=== PATIENT | male | born 1995 | race Caucasian/White ===

== ENCOUNTER 2025-05-12 22:17 | Emergency (ER) | payer MEDICAID, SELFPAY ==
[2025-05-12 22:18] VITALS: BP 137/88; PULSE 97; RESP 16; TEMP 36.9; O2SAT 97; BMI 27.0
[2025-05-12 22:27] VITALS: BMI 27.0
--- NOTE | 2025-05-12 22:31 | EKG_ITS ---
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
--- NOTE | 2025-05-12 22:31 | XR_ITS ---
Examination: CT abdomen and pelvis without contrast. Coronal 3-D reconstructions. Sagittal 2-D reconstructions. Date and time of exam:May 13, 2025, 0013 hours INDICATIONS: Medical clearance, history foreign body, swallowed foreign body, CTDI: vol (mGy): 7.40 DLP: (mGycm): 438 Technique: Axial images of the abdomen have been obtained, 3 mm slice thickness Intravenous contrast material has not been administered. Low dose protocols were performed. One or more of the following dose reduction techniques were used; automated exposure control, adjustment of the mA and/or KV according to patient size, use of iterative reconstruction technique. Findings: No focal liver or splenic lesion No gallstones No pancreatic or adrenal mass No renal or ureteral calculi, no hydronephrosis Normal appendix No bowel obstruction Bladder intact No opaque foreign body seen Osseous structures intact IMPRESSION: No foreign body seen
[2025-05-12 22:32] VITALS: BP 144/84; PULSE 96; RESP 18; TEMP 36.9; O2SAT 100
--- NOTE | 2025-05-12 22:32 | EDNOTE_ITS ---
ED General RME/HPI General Chief complaint: Skin/Abscess/Foreign Body Stated complaint: Ingestion of Unknown Object Time Seen by Provider: 05/12/25 22:30 Arrival date/time: 05/12/25 22:17 RME / HPI RME / HPI narrative: 29-year-old male with no relevant past medical history comes into the ED brought in by PD due to ingestion of foreign body. Patient states that around 3 days ago he ingested a large amount of heroin in an attempt to hide it from the PD and he also inserted around 1 was of other drugs in a plastic wrapping compressed into a wall into his rectum. Patient states that since then he has been constipated and has not been able to pass this foreign body even though he has tried and when he strains he has abdominal pain. He also mentioned that he tried to induce vomiting for the portion of the illicit drugs that he ingested, but was unsuccessful. At this time patient has no other complaints and denies having any nausea, vomiting, abdominal pain, shortness of breath, chest pain, or fevers. Otherwise no other complaints. Related Data Allergies Allergy/AdvReac Type Severity Reaction Status Date / Time No Known Allergies Allergy Verified 07/06/24 21:50 Review of Systems Review of Systems Systems Reviewed: All systems reviewed, normal except as documented Past Medical History Past Medical History Comments PMH COMMENT: PMH: None Allergies: NKDA Social Hx: Past smoker, drugs, alcohol ED Exam Narrative Physical exam: Gen: A&O X 3, NAD HEENT: NCAT, EOMI, Pupils reactive СЕРГЕЙ, not icteric. External ears normal. No rhinorrhea. Moist mucous membranes. Neck: Supple, full range of motion, no observable masses, No meningeal sign. Lungs: No Respiratory distress, clear bilateral. CV: RRR, no murmurs. Abdomen: Soft, nondistended, nontender, No rebound tenderness. MSK: No joint swelling, no redness, peripheral pulses presents, lumbar with no edema. Skin: No rashes, petechiae, lesions.. Neuro: No focal neurological deficits appreciated, sensory and motor intact. Psych: Cooperative, appropriate mood and effect. Course Quality Measures none Orders Category Date Time Status Home Service Consultant Q4H START 00 Care 05/12/25 22:31 Active Continuous Pulse Oximetry NOW Care 05/12/25 22:31 Completed EKG (ED ONLY) *Do not use* NOW Care 05/12/25 22:[address] abdomen pelvis wo con Stat Exams 05/12/25 22:31 Taken EKG (ED Only) Stat Exams 05/12/25 22:31 Draft CBC [CBC] Stat Lab 05/12/25 23:00 Completed CMP [Comprehensive Metabolic Panel] Stat Lab 05/12/25 23:00 Completed Drug Screen,Urine Stat Lab 05/12/25 23:16 Completed UA [Urinalysis] Stat Lab 05/12/25 23:16 Completed Lactulose Syrup [Enulose Syrup] Med 05/13/25 01:58 Once 30 gm PO X1 ONE Magnesium Citrate Liqd [Citrate of Magnesia Liqd] Med 05/13/25 02:01 Once 300 ml PO X1 ONE Sodium Chloride 0.9% 1000 ml [Ns] 1,000 ml Med 05/12/25 22:32 Discontinued IV 999 mls/hr Vital Signs Vital signs: Vital Signs Temperature 98.5 F 05/12/25 22:18 Pulse Rate 97 05/12/25 22:18 Respiratory Rate 16 05/12/25 22:18 Blood Pressure 137/88 H 05/12/25 22:18 Pulse Oximetry (%) 97 05/12/25 22:18 Oxygen Delivery Method Room Air 05/12/25 22:18 Discharge Plan Plan Patient Disposition: Long Term/Court/Law Prescriptions/Referrals Referrals: No Primary/Family,Physician [Primary Care Provider] - In 1 week Problem List Clinical Impression: Constipation Patient/Caregiver Discharge Instructions Other Activity Instructions:: Follow-up with primary care physician within 2 or 3 days Recommend high fiber diet Today abdomen/pelvis CT did not show any foreign bodies. Come back to the ED if symptoms persist or worsen. Education Materials: Eating a High-Fiber Diet, ED Constipation (Adult) Print Language: E[place] MDM Narrative MDM hospital course: Patient was seen and evaluated upon arrival by myself. Diagnostic labs and imaging were ordered. Patient's abdomen was soft and was nontender to palpation. Ordered CT abdomen and pelvis. Abdomen/pelvis CT showed no foreign body, but did show fecal loading. Patient did complain all treatment including enema, lactulose, and magnesium citrate. Stated that he wanted to go as we did not find when he thought he had. At this time patient is medically cleared to go back to residential center. Case disclosed with Attending Dr. Manda Mendez PGY2 Disclaimer: Even though this this note was dictated by speech recognition and even though it was carefully revised there may still be minor errors in knockup worker due to voice recognition software. Medication Administration(s) Medication Administration History Lactulose (Lactulose Syrup 20 Gm/30 Ml Udc) 30 gm PO X1 ONE; Protocol Stop: 05/13/25 01:59 Magnesium Citrate (Magnesium Citrate 300 Ml Btl) 300 ml PO X1 ONE Stop: 05/13/25 02:02 Discontinued Medications Sodium Chloride (Ns) 1,000 mls @ 999 mls/hr IV .Q1H1M ONE Stop: 05/12/25 23:32 Last Infusion: 05/13/25 01:24 Dose: Infused Documented By: Admin: 05/13/25 00:26 Dose: 999 mls/hr Documented By: ARACELY
[2025-05-12 22:35] VITALS: PULSE 96
[2025-05-12 23:26] LABS: Collection Type, Urine Voided
[2025-05-12 23:33] LABS: Basophils # (Auto) 0.1 Thou/mm3 (0.0-0.2); Basophils % (Auto) 1 % (0-2.5); Eosinophils # (Auto) 0.2 Thou/mm3 (0.0-0.5); Eosinophils % (Auto) 4 % (0-10); Hematocrit 41.6 % (41.0-53.0); Hemoglobin 14.2 g/dL (13.5-16.0); Immature Granulocytes Auto 0.02 Thou/mm3 (0.00-0.00); Lymphocytes # (Auto) 1.7 Thou/mm3 (1.0-4.8); Lymphocytes % (Auto) 29 % (10-50); Mean Corpuscular HGB Conc 34.1 g/dl (31.0-37.0); Mean Corpuscular Hemoglobin 30.1 pg (25.0-35.0); Mean Corpuscular Volume 88 fL (80-100); Monocytes # (Auto) 0.6 Thou/mm3 (0.0-0.8); Monocytes % (Auto) 10 % (0-12); Neutrophils # (Auto) 3.4 Thou/mm3 (1.8-7.7); Neutrophils % (Auto) 57 % (37-80); Nucleated Red Blood Cell # 0.00 Thou/mm3 (0.00-0.00); Nucleated Red Blood Cell % 0 /100 WBC (0); Platelet Count 170 Thou/mm3 (140-440); RDW Standard Deviation 40.0 fL (35.1-43.9); Red Blood Count 4.71 Miln/mm3 (4.50-5.90); White Blood Count 6.1 Thou/mm3 (3.8-10.6)
[2025-05-12 23:57] LABS: Alanine Aminotransferase 8 U/L (10-49); Albumin, Serum 4.4 gm/dL (3.5-5.0); Albumin/Globulin Ratio 1.6 (1.2-2.2); Alkaline Phosphatase 79 U/L (46-116); Anion Gap 10 (7-16); Aspartate Amino Transferase 23 U/L (0-34); BUN/Creatinine Ratio 6 Ratio (12-20); Bilirubin,Total 0.3 mg/dL (0.3-1.2); Blood Urea Nitrogen < 5 mg/dL (9-23); Calcium 9.7 mg/dL (8.3-10.6); Calcium (Corrected) 9.7 mg/dL (8.5-10.1); Carbon Dioxide 24.3 mMol/L (20.0-31.0); Chloride 104 mMol/L (98-107); Creatinine (Component) 0.9 mg/dL (0.6-1.3); Estimated Creatinine Clearance 121.1 mL/min (>60); Globulin 2.7 gm/dL (2.3-3.5); Glucose 78 mg/dL (74-106); Osmolality,Calculated 271 (275-295); Potassium 4.3 mMol/L (3.4-5.1); Sodium 138 mMol/L (136-145); Total Protein 7.1 gm/dL (5.7-8.2); eGFR > 60 See Note
[2025-05-13] LABS: Bilirubin,Urine Negative (Negative); Blood,Urine Negative (Negative); Clarity,Urine Clear (Clear/Hazy); Color,Urine Lt-Yellow (Lt Yel-Yel); Glucose, Urine Negative (Negative); Ketones,Urine Negative (Negative); Leukocyte Esterase,Urine Negative (Negative); Nitrite,Urine Negative (Negative); PH,Urine 6.5 (5.0-7.0); Protein,Urine Negative (Neg - Trace); RBC,Urine < 1 /hpf (0-3); Specific Gravity,Urine 1.014 (1.001-1.035); Squamous Epithelial Cell,Urine < 1 /hpf (0-5); Urobilinogen,Urine Negative mg/dL (0.0-1.0); WBC,Urine < 1 /hpf (0-5)
[2025-05-13 00:06] LABS: Amphetamine/Methamp Scrn,U Positive (Negative); Barbiturate Screen,Urine Negative (Negative); Benzodiazepines Screen,Urine Negative (Negative); Benzoylecgonine Screen, Ur Negative (Negative); Fentanyl Screen,Urine Negative (Negative); Opiate Screen,Urine Negative (Negative); THC Screen,Urine Negative (Negative)
[2025-05-13] MEDS: SODIUM CHLORIDE 0.9% 1000 ML 1,000 ML 999 ML IV (00:26)
[2025-05-13 00:52] VITALS: BP 145/90; PULSE 87; RESP 18; TEMP 37; O2SAT 100
--- NOTE | 2025-05-13 01:42 | PRELIM_ITS ---
CT scan of the abdomen and pelvis without intravenous contrast (axial sections with sagittal and coronal reformats) May 13, 2025 at 0013 hours Clinical History: Foreign body. Comparison: No prior study is available for comparison. Findings: The lung bases are clear. The liver, gallbladder, pancreas, spleen, kidneys and adrenals are unremarkable on this noncontrast study. No evidence of bowel obstruction. The appendix is within normal limits. There is no mesenteric or retroperitoneal adenopathy. The urinary bladder is unremarkable. There is no free fluid or free air. The osseous structures are unremarkable. Fecal loading. No evidence of foreign bodies. Impression: No evidence of foreign bodies. Fecal loading. Report Electronically Signed By: Valdemar Pineda 05/13/2025 1:41:55 AM [EST]
--- NOTE | 2025-05-13 02:08 | PC.NURSE ---
PT REFUSED TO TAKE MEDICATIONS UPON DC. PT STATING HE JUST WANTS TO LEAVE.
== END 2025-05-13 02:04 ==
DX: K59.00 Constipation, unspecified (principal); R94.31 Abnormal electrocardiogram [ECG] [EKG]
CPT/HCPCS: 36415; 74176; 80053; 80307; 81001; 85025; 93005; 96360; 99283; J7030